=== PATIENT | male | born 1955 | race Caucasian/White ===

== ENCOUNTER 2019-05-25 07:29 | Emergency (ER) | payer BC ==
--- NOTE | 2019-05-25 08:06 | UC ---
Hand/Wrist HPI - HPI Summary HPI Summary: 64 yo male 5 days s/p crushing left thumb with a large retaining stone Large left subungual hematoma he is right handed throbbing pain - History Of Current Complaint Chief Complaint: UCUpperExtremity Stated Complaint: LT FINGER INJURY Time Seen by Provider: 05/25/19 07:54 Hx Obtained From: Patient Onset/Duration: Sudden Onset, Lasting Days Severity Initially: Severe Severity Currently: None Pain Intensity: 0 - unless he touches it Character Of Pain: Throbbing Aggravating Factor(s): Other - touch Alleviating Factor(s): Rest Associated Signs And Symptoms: Positive: Swelling Related History: Dominant Hand Right Hands: 1 - 100 % subungual hematoma - Allergies/Home Medications Allergies/Adverse Reactions: Allergies Allergy/AdvReac Type Severity Reaction Status Date / Time codeine Allergy Severe Unknown Verified 05/25/19 07:46 Reaction Details prochlorperazine AdvReac Severe seizures Verified 05/25/19 07:46 [From Compazine] Home Medications: Home Medications Ibuprofen TAB* [Advil TAB*] 600 mg PO Q6H PRN 05/25/19 [History Confirmed ] PMH/Surg Hx/FS Hx/Imm Hx Previously Healthy: Yes - Surgical History Surgical History: Yes Surgery Procedure, Year, and Place: tonsillectomy - Family History Known Family History: Positive: Non-Contributory - Social History Alcohol Use: Rare Substance Use Type: None Smoking Status (MU): Never Smoked Tobacco Review of Systems All Other Systems Reviewed And Are Negative: Yes Constitutional: Positive: Negative Skin: Positive: Bruising Eyes: Positive: Negative ENT: Positive: Negative Respiratory: Positive: Negative Cardiovascular: Positive: Negative Gastrointestinal: Positive: Negative Genitourinary: Positive: Negative Motor: Positive: Negative Neurovascular: Positive: Negative Musculoskeletal: Positive: Negative Neurological: Positive: Negative Psychological: Positive: Negative Physical Exam Triage Information Reviewed: Yes Appearance: Well-Appearing, No Pain Distress, Well-Nourished Vital Signs: Initial Vital Signs Temp 98.1 F 05/25/19 07:39 Pulse 81 05/25/19 07:39 Resp 16 05/25/19 07:39 BP 131/81 05/25/19 07:39 Pulse Ox 97 05/25/19 07:39 Vital Signs Reviewed: Yes Eyes: Positive: Conjunctiva Clear ENT: Positive: Hearing grossly normal. Negative: Nasal congestion, Nasal drainage, Trismus, Muffled voice, Hoarse voice Neck: Positive: Supple Respiratory: Positive: Lungs clear, Normal breath sounds, No respiratory distress, No accessory muscle use Cardiovascular: Positive: RRR, No Murmur Musculoskeletal: Positive: ROM Limited @ - left thumb due to swelling, Other: - see image Neurological: Positive: Alert Psychological Exam: Normal Skin Exam: Other - see image Procedures - Procedure Summary Procedure Summary: Left thumb subungual hematoma nail trephination (by ) Time out sterile prep 2 hole put in left thumb nail with electrocautery hematoma decompressed tolerated procedure well bandaid applied Diagnostics - Radiology No standard instances Radiology Interpretation Completed By: Radiologist Summary of Radiographic Findings: no fx Hand/Wrist Course/Dx - Differential Dx/Diagnosis Provider Diagnosis: Hematoma, subungual, thumb, left Discharge - Sign-Out/Discharge Documenting (check all that apply): Patient Departure All imaging exams completed and their final reports reviewed: Yes - Discharge Plan Condition: Stable Disposition: HOME Patient Education Materials: Subungual Hematoma (ED) Referrals: [facility] [place] [facility] [Outside] - If Needed Additional Instructions: XR- no fracture call for any questions return for any problems - Billing Disposition and Condition Condition: STABLE Disposition: Home
== END 2019-05-25 08:30 | disposition home or self-care (01) ==
LOC: UCEAST 07:29
DX: S60.112A Contusion of left thumb with damage to nail, initial encounter (principal); X58.XXXA Exposure to other specified factors, initial encounter; Y92.9 Unspecified place or not applicable; Z88.5 Allergy status to narcotic agent
CPT/HCPCS: 11740; 99201; G0463